=== PATIENT | female | born 1990 | race American Indian/Alaskan Native ===

== ENCOUNTER 2016-10-15 21:36 | Emergency (ER) | payer OTHER ==
[2016-10-15 22:25] LABS: Bacteria,Urine 1+ /HPF (Negative); Bilirubin,Urine NEG (Negative); Blood,Urine NEG (Negative); Ketones,Urine TR mg/dL (Negative); Leukocyte Esterase,Urine TR (Negative); Mucus,Urine 3+ /HPF; Nitrite,Urine NEG (Negative); Urobilinogen,Urine < 2.0 mg/dL (<2.0)
[2016-10-15 23:07] LABS: Hematocrit 38.9 % (30.3-42.9); Hemoglobin 12.3 gm/dl (10.1-14.3); Mean Corpuscular HGB Conc 32 % (30-34); Mean Corpuscular Hemoglobin 26 pg (28-32); Mean Corpuscular Volume 82 fl (79-97); Platelet Count 335 K/mm3 (140-440); Red Blood Count 4.72 M/mm3 (3.65-5.03); Red Cell Distribution Width 14.9 % (13.2-15.2)
[2016-10-15 23:20] LABS: Anion Gap 17 mmol/L; Blood Urea Nitrogen 5 mg/dL (7-17); Calcium 9.2 mg/dL (8.4-10.2); Carbon Dioxide 23 mmol/L (22-30); Glucose 97 mg/dL (65-100); Potassium 4.4 mmol/L (3.6-5.0); Sodium 137 mmol/L (137-145)
--- NOTE | 2016-10-16 03:31 | Ultrasound Report ---
FINAL REPORT PROCEDURE: US OB TRANSVAGINAL TECHNIQUE: Real-time transvaginal sonography of the uterus, placenta, amniotic fluid, adnexa, and fetus was performed with image documentation. Measurements were obtained to determine age/size. M-mode Doppler was used to document heartbeat. CPT 57357 HISTORY: pelvic pain with preg COMPARISON: No prior studies are available for comparison. FINDINGS: CRL: 15.2mm, which corresponds to a gestational age of: 7weeks, 6 days. Yolk Sac: Normal. Embryonic Cardiac Activity: 159 beats per minute Gestational Sac: Normal. There is a subchorionic hematoma measuring 2.1 x 1.1 x 0.4 centimeters. Right Ovary: Normal. Left Ovary: There is a 3.4 centimeter cyst. Estimated delivery date: 05/29/2017 Comment: Complete anatomic survey at 18-20 weeks suggested. IMPRESSION: 1. Single living intrauterine gestation at approximately 7 weeks and 6 days 2. EDC by US 05/29/2017.
--- NOTE | 2016-10-16 03:32 | Ultrasound Report ---
FINAL REPORT PROCEDURE: US OB transabdominal TECHNIQUE: Real-time transabdominal sonography of the uterus, placenta, amniotic fluid, adnexa, and fetus was performed with image documentation. Measurements were obtained to determine age/size. M-mode Doppler was used to document heartbeat. HISTORY: pelvic pain with preg COMPARISON: No prior studies are available for comparison. FINDINGS: CRL: 15.2mm, which corresponds to a gestational age of: 7weeks, 6 days. Yolk Sac: Normal. Embryonic Cardiac Activity: 159 beats per minute Gestational Sac: Normal. There is a subchorionic hematoma measuring 2.1 x 1.1 x 0.4 centimeters. Right Ovary: Normal. Left Ovary: There is a 3.4 centimeter cyst. Estimated delivery date: 05/29/2017 Comment: Complete anatomic survey at 18-20 weeks suggested. IMPRESSION: 1. Single living intrauterine gestation at approximately 7 weeks and 6 days 2. EDC by US 05/29/2017.
--- NOTE | 2016-10-16 04:38 | Emergency Department Report ---
ED Female HPI - General Chief complaint: Urogenital-Female Stated complaint: GENERAL WEAKNESS Time Seen by Provider: 10/16/16 04:30 Source: patient Mode of arrival: Ambulatory Limitations: No Limitations - History of Present Illness Initial comments: 26-year-old -Citizen Of [place] female is 6 weeks coming in today for nausea vomiting weakness as well as pelvic pain. Patient denies any vaginal discharge. He reports that she's been dealing with nausea vomiting that started 2 weeks ago. She is 2 para 0. Last vomited about an hour ago. She was just given apple juice now. She does report that the pain is sharp and is every 10 minutes. She denies any vaginal bleeding. MD Complaint: pelvic pain - Related Data Previous Rx's Medication Instructions Recorded Last Taken Type Ondansetron [Zofran Odt] 4 mg PO Q8HR #24 tab.rapdis 10/16/16 Unknown Rx Allergies Allergy/AdvReac Type Severity Reaction Status Date / Time orange AdvReac Unknown Verified 10/15/16 21:53 ED Review of Systems ROS: Stated complaint: GENERAL WEAKNESS Other details as noted in HPI Constitutional: denies: chills, fever Eyes: denies: eye pain, eye discharge, vision change ENT: denies: ear pain, throat pain Respiratory: denies: cough, shortness of breath, wheezing Cardiovascular: denies: chest pain, palpitations Endocrine: no symptoms reported Gastrointestinal: nausea, vomiting Musculoskeletal: denies: back pain, joint swelling, arthralgia Skin: denies: rash, lesions ED Past Medical Hx - Past Medical History Previous Medical History?: Yes Hx Asthma: Yes - Surgical History Additional Surgical History: - Social History Smoking Status: Current Every Day Smoker Substance Use Type: Alcohol - Medications Home Medications: Home Medications Medication Instructions Recorded Confirmed Last Taken Type Ondansetron [Zofran Odt] 4 mg PO Q8HR #24 tab.rapdis 10/16/16 Unknown Rx ED Physical Exam - General Limitations: No Limitations General appearance: alert, in no apparent distress - Head Head exam: Present: atraumatic, normocephalic - ENT ENT exam: Present: normal exam, other (lips dry) - Cardiovascular Cardiovascular Exam: Present: regular rate, normal rhythm, normal heart sounds - GI/Abdominal GI/Abdominal exam: Present: soft. Absent: distended, tenderness - External exam: Present: normal external exam Speculum exam: Present: cervical discharge. Absent: vaginal discharge, foreign body Bi-manual exam: Present: normal bi-manual exam. Absent: cervical motion tendernes, adnexal tenderness, adnexal mass, uterine tenderness - Extremities Exam Extremities exam: Present: normal inspection, full ROM ED Course Vital Signs 10/15/16 10/15/16 10/16/16 21:46 21:48 03:56 Temperature 98.8 F 98.8 F Pulse Rate 96 H 96 H 70 Respiratory 20 18 18 Rate Blood Pressure 136/82 Blood Pressure 136/82 113/69 [Right] O2 Sat by Pulse 100 100 100 Oximetry 10/16/16 03:57 Temperature Pulse Rate Respiratory 18 Rate Blood Pressure Blood Pressure [Right] O2 Sat by Pulse 100 Oximetry ED Medical Decision Making - Lab Data Result diagrams: 10/15/16 22:44 10/15/16 22:44 - Medical Decision Making Patient has been evaluated by this provider in fast track. Ultrasound performed. Impression left ovary there is a 3.4 cm cyst. #1. Single live intrauterine gestation at approximate 7 weeks and 6 days. #2 EDC by ultrasound 05/29/2017. Critical care attestation.: If time is entered above; I have spent that time in minutes in the direct care of this critically ill patient, excluding procedure time. ED Disposition Clinical Impression: Nausea and vomiting during prior to 22 weeks gestation, , Pelvic pain during in first trimester, antepartum Disposition: DISCHARGED TO HOME OR SELFCARE Is pt being admited?: No Does the pt Need Aspirin: No Condition: Stable Instructions: Morning Sickness (ED) Additional Instructions: Please take the Zofran for nausea and vomiting. Then try to drink plenty of fluids and eat a small portions every 2-3 hours. He can also try crackers saltines and [place]. These follow-up with the primary care provider or primary OB provider. Return to the emergency room if you cannot hold fluids down. Prescriptions: Ondansetron [Zofran Odt] 4 mg PO Q8HR #24 tab.rapdis Referrals: PRIMARY CARE, [Primary Care Provider] - 3-5 Days [facility] [Provider Group] - 3-5 Days Forms: Accompanied Note, Work/School Release Form(ED)
[2016-10-16] MEDS ORDERED: ZOFRAN ORAL LIQ PO ONE (04:39)
[2016-10-16 05:59] VITALS: BP 111/78
[2016-10-16] MEDS ORDERED: NACL 0.9% 500 ML IV ONE (06:38)
[2016-10-16] MEDS ORDERED: REGLAN IV ONE (06:38)
== END 2016-10-16 08:07 | disposition home or self-care (01) ==
LOC: ED 21:36
DX: O21.9 Vomiting of pregnancy, unspecified (principal); R11.0 Nausea; R10.2 Pelvic and perineal pain; J45.909 Unspecified asthma, uncomplicated; F17.200 Nicotine dependence, unspecified, uncomplicated; Z3A.01 Less than 8 weeks gestation of pregnancy; Z91.018 Allergy to other foods
CPT/HCPCS: 36415; 76801; 76817; 80048; 81001; 84702; 85027; 86900; 86901; 87210; 87591; 96361; 96374; 99285; J2765; J7040; Q0162